=== PATIENT | male | born 1975 ===

== ENCOUNTER 2018-05-13 07:00 | Emergency (ER) | payer OTHER ==
[~2018-05-13] VITALS: Ht 177.8 cm; Wt 99.8 kg
[2018-05-13] MEDS ORDERED: KETO10TA2 PO (11:26)
== END 2018-05-13 12:00 | disposition home or self-care (01) ==
LOC: ER 07:00
DX: S93.492A Sprain of other ligament of left ankle, initial encounter (principal); X50.3XXA Overexertion from repetitive movements, initial encounter; Y93.89 Activity, other specified; Y92.89 Other specified places as the place of occurrence of the external cause; Y99.8 Other external cause status